=== PATIENT | female | born 1970 | race Hispanic/Latino ===

== ENCOUNTER 2019-09-20 22:48 | Emergency (ER) | payer MEDICAID ==
--- NOTE | 2019-09-20 23:29 | CT ---
Exam: Head CT without contrast HISTORY: Patient missed dialysis today. Hand tremor. COMPARISON: none FINDINGS: Hemorrhage: No intraparenchymal hemorrhage or extra-axial hematoma. Brain parenchyma: Cortical acosta-white matter differentiation is preserved. No mass effect or midline shift. Basilar cisterns are patent. Ventricular system: Ventricles and sulci are patent and symmetric. Calvarium: Intact. Sinuses and mastoid air cells: Adequate aeration. IMPRESSION: No acute intracranial process.
[2019-09-21] LABS: Hemoglobin 11.6 g/dL (12.0-16.0); Mean Corpuscular HGB CONC 33.4 g/dL (32.0-36.0); Mean Corpuscular Hemoglobin 31.6 pg (27.0-31.0); Mean Corpuscular Volume 94.6 fL (78.0-98.0); RBC Distribution Width 16.7 % (11.5-14.5); Red Blood Cell (RBC) Count 3.67 mill/uL (4.20-5.40); White Blood Cell (WBC) Count 2.1 thou/uL (4.8-10.8)
[2019-09-21] MEDS ORDERED: Lorazepam 2 MG/ML VIAL ONE ×2 (00:02→01:21)
[2019-09-21 00:12] LABS: ALT (SGPT) 19 U/L (8-55); AST (SGOT) 32 U/L (5-34); Albumin 3.6 g/dL (3.5-5.0); Alkaline Phosphatase 351 U/L (40-110); Anion Gap 19 mmol/L (10-20); BUN (Urea Nitrogen) 43 mg/dL (7.0-18.7); Bilirubin, Total 1.2 mg/dL (0.2-1.2); Calc. Creatinine Clearance 0 mL/min (70-130); Calcium 7.8 mg/dL (7.8-10.44); Carbon Dioxide 17 mmol/L (22-29); Chloride 87 mmol/L (98-107); Estimated GFR-MDRD 12; Globulin 3.6 g/dL (2.4-3.5); Magnesium 2.5 mg/dL (1.6-2.6); Protein, Total 7.2 g/dL (6.0-8.3)
[2019-09-21 00:15] LABS: #Eosinphils 0.1 thou/uL (0.0-0.7); #Lymphocytes 0.5 thou/uL (1.20-3.40); #Monocytes 0.1 thou/uL (0.11-0.59); #Neutrophils 1.4 thou/uL (1.40-6.50); %Basophils 0.3 % (0.0-1.0); %Eosinophils 4.3 % (0.0-10.0); %Lymphocytes 22.6 % (21.0-51.0); %Monocytes 6.7 % (0.0-10.0); Mean Platelet Volume 14.4 fL (7.4-10.4); Platelet Count 23 thou/uL (130-400); Platelet Morphology Comment Appears Decreased; Reflex for Review?? YES
[2019-09-21 00:16] LABS: Glucose 1136 mg/dL (70-105); Sodium 118 mmol/L (136-145)
[2019-09-21] MEDS ORDERED: Insulin Regular 300 UNITS/3 ML VIAL ONE (00:37)
[2019-09-21] MEDS ORDERED: Insulin Regular 100 units/100 ml in NS IVPB SCH (01:00)
[2019-09-21] MEDS ORDERED: Morphine 2 MG/ML SYRINGE ONE (02:06)
[2019-09-21] MEDS ORDERED: Ondansetron PF 4 MG/2 ML Vial ONE (02:06)
[2019-09-21] MEDS ORDERED: Cyclobenzaprine 10 MG TAB ONE (02:07)
== END 2019-09-21 02:23 | disposition short-term general hospital (02) ==
LOC: ERS 22:48
DX: E11.65 Type 2 diabetes mellitus with hyperglycemia (principal); F41.9 Anxiety disorder, unspecified; I12.0 Hypertensive chronic kidney disease with stage 5 chronic kidney disease or end stage renal disease; E11.22 Type 2 diabetes mellitus with diabetic chronic kidney disease; N18.6 End stage renal disease; M19.90 Unspecified osteoarthritis, unspecified site; Z99.2 Dependence on renal dialysis
CPT/HCPCS: 36415; 36416; 70450; 80053; 82010; 83735; 85025; 85060; 93005; 96365; 96375; 96376; J1815; J2060; J2270; J2405; J3490